=== PATIENT | female | born 1955 | race Caucasian/White ===

== ENCOUNTER 2022-01-09 10:54 | Outpatient (CLI) | payer MEDICARE, SELFPAY | END 2022-01-09 10:55 | disposition home or self-care (01) | LOC: ANHAUDASC 10:56 | PROVIDERS: Visit Provider Otolaryngology | DX: H93.13 Tinnitus, bilateral (principal); H90.3 Sensorineural hearing loss, bilateral | CPT/HCPCS: 92557; 92567 ==

== ENCOUNTER 2022-01-15 12:34 | Outpatient (RCR) | payer SELFPAY | END 2022-04-15 23:59 | disposition home or self-care (01) | LOC: ANHAUDASC 12:34 | PROVIDERS: Visit Provider Otolaryngology | DX: Z46.1 Encounter for fitting and adjustment of hearing aid (principal) | CPT/HCPCS: 92593 ==

== ENCOUNTER 2024-09-27 10:10 | Outpatient (CLI) | payer MEDICARE, SELFPAY ==
--- NOTE | ~2024-09-27 | XR_ITS ---
Right Hand Technique: PA, oblique, and lateral views were obtained. Clinical History: Carpal tunnel syndrome Findings: No acute fracture or dislocation is seen. Osseous alignment is anatomic. There is severe de generative change of the first CMC joint. Soft tissues are unremarkable. Impression: Severe degenerative change of the first CMC joint. Reviewed, dictated and finalized at location . RINARY MEDICINE DOCTOR Impression: Severe degenerative change of the first CMC joint.
--- NOTE | ~2024-09-27 | XR_ITS ---
Left Hand Technique: PA, oblique, and lateral views were obtained. Clinical History: Carpal tunnel syndrome Findings: No acute fracture or dislocation is seen. Osseous alignment is anatomic. There is mild dege nerative change of the first CMC joint. There are mild scattered degenerative changes of the interpha langeal joints of the fingers. Soft tissues are unremarkable. Impression: Mild degenerative changes, as above. Reviewed, dictated and finalized at location M. BRAIDER Impression: Mild degenerative changes, as above.
--- OUTSIDE RECORDS SUMMARY | 2024-09-27 10:22 | XMS_ITS | Patient Health Summary ---
Author Organization [facility] Address [address] [place] [address] Care Team Providers Care Acetylene Torch Burner Name Role Phone Geovani Adames MD Primary Care Provider [phone] Note from [facility],non-owned Affiliates and Associated Physician Practices is amultiple site organization consisting of ambulatory clinics and hospital sitesin [place], [place], [place] and [place]. This disclosure is being madepursuant to the Care Everywhere program and may not contain all information available regarding this patient. Last updated 18.[facility] Allergies No known active allergies Medications * Be aware that medications may not be up to date on this document. Alwaysverify current medications with the patient. * atorvastatin (LIPITOR) 10 MG tablet(Started 10/02/2020) * metFORMIN (GLUCOPHAGE) 1000 MG tablet(Started 12/03/2020) 2 times daily * glimepiride (AMARYL) 4 MG tablet(Started 10/30/2020) 2 times daily * ondansetron (ZOFRAN) 4 MG tablet(Started 12/05/2020) * olmesartan (BENICAR) 40 MG tablet(Started 12/05/2020) * LORazepam (ATIVAN) 0.5 MG tablet(Started 10/02/2020) * tiZANidine (ZANAFLEX) 4 MG tablet(Started 10/30/2020) * diphenhydrAMINE (Benadryl) 25 MG capsule Take 1 (one) capsule by mouth every 4 hours as needed for Itching * Trulicity 1.5 MG/0.5ML injection(Started 11/10/2022) * amphetamine-dextroamphetamine (Adderall) 5 MG tablet(Started 11/13/2022) * prucalopride (Motegrity) 2 MG tablet(Started 11/01/2023) Take 1 (one) tablet by mouth once daily Needs a f/u appt scheduled for further refills [phone] 1 1 refill by 10/31/2024 Active Problems Problem Noted Date Diagnosed Date Gastroparesis 12/05/2022 Nausea & vomiting 10/12/2022 Other constipation 10/12/2022 Social History Tobacco Use Types Packs/Day Years Used Date Smoking Tobacco: Former Cigarettes 1 6 1 [id number] Smokeless Tobacco: Former Tobacco Cessation:Counseling Given: Not Answered Alcohol Use Standard Drinks/Week Comments Not Currently 0 (1 standard drink = 0.6 oz pur e alcohol) Sex and Gender Information Value Date Recorded Sex Assigned at Not on file Gender Identity Not on file Sexual Orientation Not on file Last Filed Vital Signs Vital Sign Reading Time Taken Comments Blood Pressure 136/84 11/30/2022 1:50 PM CDT Pulse 93 11/30/2022 1:50 PM CDT Temperature 36.6 C (97.9 F) 11/30/2022 1:50 PM CDT Respiratory Rate 19 11/25/2022 3:15 PM CDT Oxygen Saturation 98% 11/30/2022 1:50 PM CDT Inhaled Oxygen Concentration - - Weight 70.5 kg (155 lb 6.4 oz) 11/30/2022 1:50 P M CDT Height 157.5 cm (5' 2 ) 11/30/2022 1:50 PM CDT Body Mass Index 28.42 11/30/2022 1:50 PM CDT Procedures * COMPREHENSIVE METABOLIC PANEL(Performed 11/25/2022) Performed for Nausea and vomiting, unspecified vomiting type * CBC W AUTO DIFFERENTIAL(Performed 11/25/2022) Performed for Nausea and vomiting, unspecified vomiting type * PATHOLOGY TISSUE(Performed 11/25/2022) Performed for Nausea and vomiting, unspecified vomiting type * [place] ED EGD FLEX TRANSORAL DX(Performed 11/25/2022) Performed for Nausea and vomiting, unspecified vomiting type * EGD(Performed 11/25/2022) * GLUCOSE - POINT OF CARE(Performed 11/25/2022) * NM GASTRIC EMPTYING(Performed 12/25/2020) Performed for Nausea Results * CBC WITH DIFFERENTIAL (11/25/2022 3:20 PM [facility]) WBC 8.7 3.5 - 10.5 10 3/uL 11/25/2022 3:53 PM [facility] RBC 4.44 3.80 - 5.20 10 6/uL 11/25/2022 3:53 PM [facility] Hemoglobin 13.0 12.0 - 15.6 g/dL 11/25/2022 3:53 PM [facility] Hematocrit 39.0 35.0 - 45.0 % 11/25/2022 3:53 PM [facility] MCV 87.8 80.7 - 98.3 fL 11/25/2022 3:53 PM [facility] MCH 29.3 26.7 - 34.0 pg 11/25/2022 3:53 PM [facility] MCHC 33.3 30.8 - 35.9 g/dL 11/25/2022 3:53 PM [facility] RDW-SD 42.5 36.0 - 50.0 fL 11/25/2022 3:53 PM [facility] RDW-CV 13.2 11.2 - 14.8 % 11/25/2022 3:53 PM [facility] Platelet Count 387 150 - 400 10 3/uL 11/25/2022 3:53 PM [facility] MPV 9.7 9.4 - 12.9 fL 11/25/2022 3:53 PM [facility] nRBC Absolute 0.00 0 10 3/uL 11/25/2022 3:53 PM [facility] nRBC Auto 0.0 0 /100 WBC 11/25/2022 3:53 PM [facility] Neutrophils % 60.3 35.0 - 70.0 % 11/25/2022 3:53 PM [facility] Lymphocytes % 30.8 20.0 - 43.0 % 11/25/2022 3:53 PM [facility] Monocytes % 6.1 5.0 - 13.0 % 11/25/2022 3:53 PM [facility] Eosinophils % 1.7 0.0 - 6.0 % 11/25/2022 3:53 PM CDT [facility] Basophil % 0.6 0.0 - 2.0 % 11/25/2022 3:53 PM CDT [facility] Neutrophils Absolute 5.26 1.60 - 7.00 10 3/uL 11/25/2022 3:53 PM CDT [facility] Lymphocyte Absolute 2.69 1.10 - 3.90 10 3/uL 11/25/2022 3:53 PM CDT [facility] Monocytes Absolute 0.53 0.26 - 1.07 10 3/uL 11/25/2022 3:53 PM CDT [facility] Eosinophils Absolute 0.15 0.00 - 0.47 10 3/uL 11/25/2022 3:53 PM CDT [facility] Basophils Absolute 0.05 0.00 - 0.08 10 3/uL 11/25/2022 3:53 PM CDT [facility] Immature Granulocytes % 0.5 0.0 - 1.0 % 11/25/2022 3:53 PM CDT [facility] Immature Granulocytes Absolute 0.04 11/25/2022 3:53 PM CDT [facility] Blood BLOOD SPECIMEN / Unknown Venipuncture / Unknown 11/25/2022 3:20 PM CDT 11/25/2022 3:30 PM CDT Diya Rausch COMMISSARY HELPER-INTERMEDIATE TEACHER LAB - HEMATO LOGY ORDERABLES Performing Organization Address City/State/[facility] Co de Phone Number [facility] [address] [place] [id number], [facility] [phone] * (ABNORMAL) COMPREHENSIVE METABOLIC PANEL (11/25/2022 3:20 PM CDT) BUN 21 7 - 26 mg/dL 11/25/2022 4:18 PM CDT [facility] Creatinine 0.57 0.56 - 0.96 mg/dL 11/25/2022 4:18 PM CDT [facility] Sodium 138 136 - 145 mmol/L 11/25/2022 4:18 PM CDT [facility] Potassium 3.9 3.5 - 4.5 mmol/L 11/25/2022 4:18 PM [facility] Chloride 103 98 - 107 mmol/L 11/25/2022 4:18 PM [facility] CO2 28 22 - 29 mmol/L 11/25/2022 4:18 PM [facility] Glucose 102 70 - 115 mg/dL 11/25/2022 4:18 PM [facility] Calcium 9.5 8.4 - 10.2 mg/dL 11/25/2022 4:18 PM [facility] Protein Total 6.5 6.0 - 8.3 g/dL 11/25/2022 4:18 PM [facility] Albumin 3.6 3.4 - 5.0 g/dL 11/25/2022 4:18 PM [facility] Bilirubin Total 0.3 0.2 - 1.2 mg/dL 11/25/2022 4:18 PM [facility] Alkaline Phosphatase 89 40 - 150 U/L 11/25/2022 4:18 PM [facility] ALT 14 5 - 55 U/L 11/25/2022 4:18 PM [facility] AST 11 5 - 34 U/L 11/25/2022 4:18 PM [facility] Anion Gap 11 8 - 18 11/25/2022 4:18 PM [facility] BUN/Creatinine Ratio 37(H) 7 - 23 11/25/2022 4:18 PM [facility] Osmolality Calculated 289 270 - 300 mOsm/kg 11/25/2022 4:18 PM [facility] Albumin/Globulin Ratio 1.2 1.1 - 2.3 11/25/2022 4:18 PM [facility] eGFR by CKD-EPI >90 >=90 mL/min/1.7 3 m2 11/25/2022 4:18 PM [facility] Blood BLOOD SPECIMEN / Unknown Venipuncture / Unknown 11/25/2022 3:20 PM CDT 11/25/2022 3:30 PM T Diya Rausch COMMISSARY HELPER-INTERMEDIATE TEACHER LAB - CHEMIS TRY ORDERABLES [facility] [address] [place] [address], [facility] [phone] * PATHOLOGY TISSUE (11/25/2022 2:48 PM CDT) Case Report Surgical Pathology Report Case: [id number] Authorizing Provider: Kimberly De Leon MD Collected: 11/25/2022 02:48 PM Ordering Location: [facility] Received: 11/25/2022 03:01 PM Pathologist: Silvia Drake MD Specimen: Esophagus, Distal Esophageal Polyp Bx 11/26/2022 12:31 PM CDT [facility] Final Diagnosis Esophagus, distal polyp, biopsy (A): - Benign squamous papilloma 11/26/2022 12:31 PM CDT [facility] Microscopic Description and Comment Microscopic examination substantiates the final diagnosis. 11/26/2022 12:31 PM CDT [facility] Clinical History The patient is a 67-year-old woman with nausea and vomiting. Operative procedure/findings: EGD - one 2 mm polyp at esophagus, resected and retrieved. 11/26/2022 12:31 PM CDT [facility] Gross Description The requisition and specimen(s) are identified with the patient's name Nabila Gonsalez. Received in formalin, specimen A , are 3 pink-white tissues, 0.1-0.5 cm in greatest dimension and 0.8 x 0.2 x 0.1 cm in aggregate, submitted in toto in cassette A1. DF 11/26/2022 12:31 PM CDT [facility] Disclaimer The performance characteristics of all immunohistochemical and indirect immunofluorescence stains (if any) cited in this report were determined by the Histopathology Laboratory of [facility]. Some of these tests were developed by our own laboratory and have not been cleared or approved by the US Food and Drug Administration. The FDA does not require this test to go through premarket FDA review. These tests are used for clinical purposes. They should not be regarded as investigational or for research. This laboratory is certified under the Clinical Laboratory Improvement Amendments (CLIA) as qualified to perform high complexity clinical laboratory testing. This case has been personally reviewed and interpreted by the attending (teaching) pathologist. 11/26/2022 12:31 PM CDT [facility] Embedded Images 11/26/2022 12:31 PM CDT [facility] LAB Biopsy, NOS REGION OF ESOPHAGUS / Unknown 11/25/2022 2:48 PM CDT 11/25/2022 3:01 PM CDT Kimberly De Leon MD LAB - PATHOLOGY/CYTO LOGY ORDERABLES Performing Organization Address City/State/[facility] de Phone Number [facility] LAB [address] [phone] * EGD (11/25/2022 2:26 PM CDT) Report Endoscopy POC Endoscopy Department Report __ _ Patient Name: Nabila Gonsalez Procedure Date: 11/25/2022 2:26 PM Date of : 1955 Classification: Outpatient Gender: Female Ethnicity: Not or Race: White __ _ Providers: Kimberly De Leon MD Referring MD: Diya Rausch, COMMISSARY HELPER-INTERMEDIATE TEACHER Procedure: Upper GI endoscopy Indications: Nausea with vomiting, pH Mancera deployment Medications: Monitored Anesthesia Care Patient Profile: This is a 67 year old female. Description of Procedure: After obtaining informed consent, the endoscope was passed under direct vision. Throughout the procedure, the patient's blood pressure, pulse, and oxygen saturations were monitored continuously. The Endoscope was introduced through the mouth, and advanced to the second part of duodenum. The upper GI endoscopy was accomplished without difficulty. The patient tolerated the procedure well. Findings: Esophagogastric landmarks were identified: the gastroesophageal junction was found at 32 cm and the site of hiatal narrowing was found at 36 cm from the incisors. A single 2 mm polyp was found 30 cm from the incisors. The polyp was removed with a cold biopsy forceps. Resection and retrieval were complete. A medium-sized hiatal hernia was present. A large amount of food (residue) was found in the gastric body. The first portion of the duodenum and second portion of the duodenum were normal. Estimated Blood Loss: Estimated blood loss was minimal. Complications: No immediate complications. Impression: - Esophagogastric landmarks identified. - A single diminitive esophageal polyp was found. Resected and retrieved. No reflux esophagitis. - Medium-sized hiatal hernia. - A large amount of food (residue) in the stomach. This explains the nausea and vomiting. Work up for delayed gastric emptying should be performed. Based on that, pH MANCERA is of low yield for the time being so it was not performed. - Normal first portion of the duodenum and second portion of the duodenum. Recommendation: - Patient has a contact number available for emergencies. The signs and symptoms of potential delayed complications were discussed with the patient. Return to normal activities tomorrow. Written discharge instructions were provided to the patient. - Resume previous diet. - Await pathology results. - Follow up in GI clinic. Attending Participation: I personally performed the entire procedure. Procedure Code(s): --- Professional --- 24026, Esophagogastroduode noscopy, flexible, transoral; with biopsy, single or multiple Diagnosis Code(s): --- Professional --- K22.8, Other specified diseases of esophagus K44.9, Diaphragmatic hernia without obstruction or gangrene R11.2, Nausea with vomiting, unspecified CPT copyright 2019 [employer]. All rights reserved. The codes documented in this report are preliminary and upon transit specialist review may be revised to meet current compliance requirements. Kimberly De Leon MD, 11/25/2022 2:58:25 PM This report has been signed electronically. Note Initiated On: 11/25/2022 2:26 PM Number of Addenda: [address] [place] [address] [facility] 11/25/2022 2:26 PM CDT Kimberly De Leon MD GI PROCEDURE ORDERAB LES Performing Organization Address [facility] Co de Phone Number [facility] * (ABNORMAL) GLUCOSE - POINT OF CARE (11/25/2022 2:02 PM CDT) Glucose WB/POC 127(H) 70 - 115 mg/dL 11/25/2022 3:53 PM CDT [facility] Specimen Type Venous 11/25/2022 3:53 PM CDT [facility] Blood BLOOD SPECIMEN / Unknown 11/25/2022 2:02 PM CDT 11/25/2022 3:53 PM CDT Kimberly De Leon MD LAB - POINT OF CARE ORDERABLES Performing Organization Address [facility] Co de Phone Number [facility] [address] [place] [address], [facility] [phone] * NM GASTRIC EMPTYING (12/25/2020 1:00 PM CDT) Anatomical Region Laterality Modality Abdomen Nuclear Medicine 12/25/2020 1:52 PM CDT Impressions 12/25/2020 1:59 PM CDT Impression: Moderate gastroparesis (grade 2) based on 32% retention at 4 hours after ingestion of meal. This report was electronically signed by JACQUES MARTINEZ D.O. on 12/25/2020 1:59 PM . Narrative 12/25/2020 1:59 PM CDT Solid Gastric Emptying Study Agent: 0.5mCi of Tc- 99m- sulfur colloid mixed in scrambled egg. History: 65-year-old female with abdominal pain. Patient's BMI is N/A. Technique: The examination was performed after the ingestion of a standardized meal (scrambled egg substitute (120 g Egg Beater, 60 kcal, equivalent to the volume of 2 large eggs), two slices of bread (120 kcal), strawberry jam (30 g, 75 kcal), and water (120 ml).The meal has a caloric value of 255 kcal: 72% carbohydrate,24% protein, 2% fat and 2% fiber. The meal is labeled with 0.5 mCi of [id number] sulfur colloid. Findings: After ingestion of solid meal, sequential images were obtained up to 4 hours. Immediate,1 hour, 2 hour and 4 hours after ingestion. The percent retention in the stomach is as follows: 1 hour: 99% (Normal range: 37 - 90% ) 2 hour: 52% (Normal range: 30 - 60%) 4 hour: 32% (Normal range: 0 - 10%) T1/2: 186 minutes (Upper limits 130) Severity of gastroparesis is as follows: Grade 1 (mild): 11-20% Grade 2 (moderate): 21 - 35% Grade 3 (severe): 36-50% Grade 4 (very severe): > 50% Procedure Note Jacques Martinez DO - 12/25/2020 Solid Gastric Emptying Study Agent: 0.5mCi of Tc- 99m- sulfur colloid mixed in scrambled egg. History: 65-year-old female with abdominal pain. Patient's BMI is N/A. Technique: The examination was performed after the ingestion of a standardized meal (scrambled egg substitute (120 g Egg Beater, 60 kcal, equivalent to the volume of 2 large eggs), two slices of bread (120kcal), strawberry jam (30 g, 75 kcal), and water (120 ml).The meal has acaloric value of 255 kcal: 72% carbohydrate,24% protein, 2% fat and 2% fiber.The meal is labeled with 0.5 mCi of [id number] sulfur colloid. Findings: After ingestion of solid meal, sequential images were obtained up to 4 hours. Immediate,1 hour, 2 hour and 4 hours after ingestion. The percent retention in the stomach is as follows: 1 hour: 99% (Normal range: 37 - 90% ) 2 hour: 52% (Normal range: 30 - 60%) 4 hour: 32% (Normal range: 0 - 10%) T1/2: 186 minutes (Upper limits 130) Severity of gastroparesis is as follows: Grade 1 (mild): 11-20% Grade 2 (moderate): 21 - 35% Grade 3 (severe): 36-50% Grade 4 (very severe): > 50% Impression: Moderate gastroparesis (grade 2) based on 32% retention at 4 hours after ingestion of meal. This report was electronically signed by JACQUES MARTINEZ D.O. on12/25/2020 1:59 PM . Geovani Adames MD [place] ORDERABLES Care Teams Acetylene Torch Burner Relationship Specialty Start Date End Date Geovani Adames MD [address] [place] [address] PCP - General 12/10/20
--- OUTSIDE RECORDS SUMMARY | 2024-09-27 10:22 | XMS_ITS | Clinical Summary ---
Author Organization [facility] Address [address] [place] [address] Care Team Providers Care Phototypesetter Operator Name Role Phone Unavailable Primary Care Provider Unavailabl e Encounters Date Type Department Care Team Description 09/04/2024 1:48 PM SECURITY MESSENGER - 09/04/2024 11:59 PM SECURITY MESSENGER Hospital Encounter [facility] [place] [address] Geovani Adames MD Patchala, Sri K, MD Discharge Disposition: Home or Self Care (Routine Discharge) 09/04/2024 Travel 08/28/2024 Orders Only [facility] [address] Jose Lama MD from Last 3 Months Social History Tobacco Use Types Packs/Day Years Used Date Smoking Tobacco: Never Assessed Comments Unknown Sex and Gender Information Value Date Recorded Sex Assigned at Female 08/28/2024 11:00 AM SECURITY MESSENGER Legal Sex Female 6:56 PM CDT Gender Identity Not on file Sexual Orientation Not on file Plan of Treatment Health Maintenance Due Date Last Done Comments Colorectal Cancer Screening Colonoscopy (10 Years) 1955 Hepatitis C 1975 Mammogram Screening 1997 Zoster Vaccines (1 of 2) 2007 Annual Medicare Wellness Visit 2022 Dexa Scan (General) 2022 Pneumococcal Vaccine: 65+ Years (1 of 1 - PCV) 2022 DTaP, Tdap and Td Vaccines ( 2 - Td or Tdap) 08/09/2022 08/09/2012 COVID-19 Vaccine (2023-2 5 season) 2024 11/23/2020, 11/03/2020 Influenza Adult (#1) 2024 RSV Immunization or 60+ Years (1 - 1-dose 75+ series) 02/27/2032 Meningococcal B Vaccine Aged Out No l onger eligible based on patient's age to complete this topic Meningococcal Vaccine Aged Out No darrel davie eligible based on patient's age to complete this topic RSV Immunizations Under 20 Months Aged Out No longer eligible b ased on patient's age to complete this topic Procedures Procedure Name Priority Date/Time Associated Diagnosis Comments EMG Routine 09/04/2024 1:48 PM SECURITY MESSENGER Paresthesia of skin from Last 3 Months Results * EMG (09/04/2024 1:48 PM SECURITY MESSENGER) 09/04/2024 1:48 PM SECURITY MESSENGER Narrative ESCRIPTION - 09/04/2024 2:48 PM SECURITY MESSENGER Patient Name: JOSE BLANCAS Date of : 1955 Account: [id number] Facility: [facility] Location: [facility] Date of Service: 09/04/2024 EMG COMPLAINT: Bilateral hand/forearm pain, left worse than right. Patient had EMG and nerve conduction performed of bilateral upper extremities. Results are as follows. SENSORY NERVE CONDUCTION STUDIES: Left median to digit 2: Latency of 3.55 with amplitude 30.0. Left median to digit 3: Latency of 3.75, which is slightly prolonged, with amplitude 44.8. Right median digit 2: Latency of 3.0 with amplitude 33.8. Left ulnar to digit 5: Latency of 2.8 with amplitude 20.6. Right ulnar to digit 5: Latency of 2.7 with amplitude 21.8. Left radial to thumb: Latency of 2.35 with amplitude of 17.0. Right radial to thumb: Latency of 2.15 with amplitude of 16.0. MOTOR NERVE CONDUCTION STUDIES: Left median to APB: Latency of 4.95, which is prolonged, with amplitude 3.9, conduction velocity 46.9. Right median to APB: Latency of 3.55 with amplitude 2.8, conduction velocity 50, low amplitude for bilateral median nerves. Left ulnar to ADM: Latency of 2.95 with amplitude 11.3, conduction velocity 47.3. Below the elbow amplitude 10.8, above the elbow amplitude 11.1, conduction velocity across the elbow 50. Right ulnar to ADM: Latency 2.9 with amplitude 9.9, conduction velocity 61.7. Below the elbow amplitude 11.1, above the elbow amplitude 10.1, conduction velocity across the elbow 61.1. EMG was performed of bilateral upper extremities. Left biceps, left triceps, left first dorsal interossei, left extensor indicis, left APB, left brachioradialis. Right biceps, right triceps, right brachioradialis, right first dorsal interossei, right APB. Normal insertional activity. No fibs, positive sharp waves or fasciculations seen. Motor units with normal amplitude and duration. Recruitment pattern is normal, except in the left APB, there is reduced recruitment pattern noted. CONCLUSION: Electrodiagnostic evidence for moderate intensity carpal tunnel syndrome seen on bilateral upper extremities, left is slightly worse than right. Some of her symptoms in the arm/forearm area might be musculoskeletal origin (clinical correlation is required). Signature/Date: JOSE LAMA #[id number] /MOS Geovani Adames MD NEUROLOGY ORDERABLES Brandy hebert Result Performing Organization Address City/State/[facility] Co de Phone Number [facility] from Last 3 Months Insurance MEDICAID MEDICARE
--- OUTSIDE RECORDS SUMMARY | 2024-09-27 10:22 | XMS_ITS | Clinical Summary ---
Author Organization [facility] Address [address] [place] [address] Care Team Providers Care Mold Polisher Name Role Phone Geovani Adames MD Primary Care Provider [phone] [phone] Source Comments [facility],non-owned Affiliates and Associated Physician Practices is [facility] organization consisting of ambulatory clinics and hospital sitesin [place], [place], [place] and [place]. This disclosure is being madepursuant to the Care Everywhere program and may not contain all information available regarding this patient. Last updated 18.[facility] Allergies No known active allergies Medications * Be aware that medications may not be up to date on this document. Alwaysverify current medications with the patient. Medication Sig Dispensed Refills Start Date End Date Status atorvastatin (LIPITOR) 10 MG tablet 10/02/2020 Active metFORMIN (GLUCOPHAGE) 1000 MG tablet 2 times daily 12/03/2020 Active glimepiride (AMARYL) 4 MG tablet 2 times daily 10/30/2020 Active ondansetron (ZOFRAN) 4 MG tablet 12/05/2020 Active olmesartan (BENICAR) 40 MG tablet 12/05/2020 Active LORazepam (ATIVAN) 0.5 MG tablet 10/02/2020 Active tiZANidine (ZANAFLEX) 4 MG tablet 10/30/2020 Active diphenhydrAMINE (Benadryl) 25 MG capsule Take 1 (one) capsule by mouth every 4 hours as needed for Itching Active Trulicity 1.5 MG/0.5ML injection 11/10/2022 Active amphetamine-dextroam phetamine (Adderall) 5 MG tablet 11/13/2022 Active prucalopride (Motegrity) 2 MG tablet Take 1 (one) tablet by mouth once daily Needs a f/u appt scheduled for further refills [phone] option 1 30 tablet 1 11/01/2023 Active Active Problems Problem Noted Date Diagnosed Date Gastroparesis 12/05/2022 Nausea & vomiting 10/12/2022 Other constipation 10/12/2022 Family History Medical History Relation Name Comments CAD (Coronary Artery Disease) Father Cancer - Lung Father Cancer - Breast Mother Hypertension Mother Relation Name Status Comments Father Mother Alive Social History Tobacco Use Types Packs/Day Years Used Date Smoking Tobacco: Former Cigarettes 1 6 1 1976 Smokeless Tobacco: Former Tobacco Cessation:Counseling Given: Not [...] Mass Index 28.42 11/30/2022 1:50 PM CDT Plan of Treatment Health Maintenance Due Date Last Done Comments BONE DENSITY TESTING 1957 COLOGUARD (AGES 45-75) - COL ON CA SCREENING 1957 COLON MONITORING 1957 COLONOSCOPY - COLON CA SCREENING 1957 CT COLONOGRAPHY - COLON CA SCREENING 1957 Colorectal Cancer Screening 1957 FIT - COLON CA SCREENING 1957 FLEX SIG - COLON CA SCREENING 1957 MAMMOGRAM 1957 HEPATITIS C SCREENING 02/22/1975 DTAP/TDAP/TD VACCINES (1 - Tdap) 02/27/1976 PNEUMOCOCCAL VACCINE 50+ (1 of 1 - PCV) 2007 ZOSTER VACCINE (1 of 2) 2007 COVID-19 VACCINE (1 - 2023-2 5 season) 2024 INFLUENZA VACCINE (#1) 2024 DEPRESSION SCREENING 08/09/2024 MEDICARE AWV CALENDAR YEAR 2024 SCREENING FOR DIABETES 11/25/2025 3, 11/25/2022 Respiratory Syncytial Virus (RSV) Vaccine Pt: or over 60 yrs (1 - 1-dose 75+ series) 02/27/2032 HEPATITIS B VACCINE Aged Out No longe r eligible based on patient's age to complete this topic HIB VACCINE Aged Out No longer eligi ble based on patient's age to complete this topic HPV VACCINE Aged Out No longer eligi ble based on patient's age to complete this topic MENINGOCOCCAL (Group B) VACCINE Aged Out No longer eligible b ased on patient's age to complete this topic MENINGOCOCCAL VACCINE Aged Out No darrel davie eligible based on patient's age to complete this topic Goals Goal Patient Goal Type Associated Problems Recent Progress Patient-Stated? Author Medication Management General On track( 023 11:14 AM ACCOUNTS MANAGER) Stephie Jimenez, RN Note: Expected end date: ongoing Interventions: Take all medications as prescribed Let your doctor know right away about any changes in your medications Make sure to request a refill of your medication at least one week prior to your last dose Procedures Procedure Name Priority Date/Time Associated Diagnosis Comments GLUCOSE - POINT OF CARE Routine 11/25/2022 2:02 PM CDT from Last 3 Months or Most Recently Relevant to Health Maintenance Results * (ABNORMAL) GLUCOSE - POINT OF CARE (11/25/2022 2:02 PM CDT) Glucose WB/POC 127(H) 70 - 115 mg/dL 11/25/2022 3:53 PM CDT [facility] Specimen Type Venous 11/25/2022 3:53 PM CDT [facility] Blood BLOOD SPECIMEN / Unknown 11/25/2022 2:02 PM CDT 11/25/2022 3:53 PM CDT Kimberly De Leon MD LAB - POINT OF CARE ORDERABLES [facility] [address] [place] [address], [facility] [phone] from Last 3 Months or Most Recently Relevant to Health Maintenance Care Teams Mold Polisher Relationship Specialty Start Date End Date Geovani Adames MD [address] [place] [address] PCP - General 12/10/20
--- OUTSIDE RECORDS SUMMARY | 2024-09-27 10:22 | XMS_ITS | Referral Summary ---
Author Organization [facility] Address [address] [place] [address] Care Team Providers Care Ccnp Name Role Phone Geovani Adames MD Primary Care Provider [phone] [phone] Source Comments [facility],non-owned Affiliates and Associated Physician Practices is [facility] organization consisting of ambulatory clinics and hospital sitesin [place], [place], [place] and [place]. This disclosure is being madepursuant to the Care Everywhere program and may not contain all information available regarding this patient. Last updated 18.[facility] Allergies No known active allergies Medications * [...] a f/u appt scheduled for further refills [phone] option 1 30 tablet 1 11/01/2023 Active Active Problems Problem Noted Date Diagnosed Date Gastroparesis 12/05/2022 Nausea & vomiting 10/12/2022 Other constipation 10/12/2022 Social History Tobacco Use Types Packs/Day Years Used Date Smoking Tobacco: Former Cigarettes 1 6 1 - 1976 Smokeless Tobacco: Former Tobacco Cessation:Counseling Given: [...] Mass Index 28.42 11/30/2022 1:50 PM CDT Functional Status Functional Status Response Date of Assess ment Is person deaf or have serious hearing difficult y? No 11/25/2022 Is person blind or have serious difficulty seein g? No 11/25/2022 Does person have serious dif ficulty walking/climbing stairs? No 11/25/2022 Does person have difficulty dressing/bathing? No 11/25/2022 Does person have difficulty doing errands alone? No 11/25/2022 Cognitive Status Response Date of Assessm ent Does person have difficulty concentrating/remembering/making decisions? No 11/25/2022 Plan of Treatment Not on file Goals Goal Patient Goal Type Associated Problems Recent Progress Patient-Stated? Author Medication Management General On track( 023 11:14 AM BAG GRADER) No Stephie Morris, RN Note: Expected end date: ongoing Interventions: [...] POINT OF CARE (11/25/2022 2:02 PM CDT) [facility] Glucose WB/POC 127(H) 70 - 115 mg/dL 11/25/2022 3:53 PM CDT [facility] Specimen Type Venous 11/25/2022 3:53 PM CDT [facility] Blood BLOOD SPECIMEN / Unknown 11/25/2022 2:02 PM CDT 11/25/2022 3:53 PM CDT Kimberly De Leon MD LAB - POINT OF CARE ORDERABLES [facility] [address] [place] [address], [facility] [phone] from Last 3 Months or Most Recently Relevant to Health Maintenance Care Teams Ccnp Relationship Specialty Start Date End Date Geovani Adames MD [address] [place] [address] PCP - General 12/10/20
== END 2024-09-27 10:11 | disposition home or self-care (01) ==
PROVIDERS: Visit Provider Orthopaedic Surgery
DX: M18.11 Unilateral primary osteoarthritis of first carpometacarpal joint, right hand (principal); M18.12 Unilateral primary osteoarthritis of first carpometacarpal joint, left hand; M19.042 Primary osteoarthritis, left hand
CPT/HCPCS: 73130

== ENCOUNTER 2024-10-05 07:39 | Outpatient (CLI) | payer MEDICARE, SELFPAY | END 2024-10-06 06:30 | disposition home or self-care (01) | DX: G47.33 Obstructive sleep apnea (adult) (pediatric) (principal); G47.19 Other hypersomnia | CPT/HCPCS: 95810 ==

== ENCOUNTER 2025-02-07 11:11 | Emergency (ER) | payer MEDICARE, SELFPAY ==
--- NOTE | ~2025-02-07 | XR_ITS ---
HISTORY: 5th digit pain/trauma COMPARISON: None TECHNIQUE: 3 views of the right foot were performed FINDINGS: No acute fracture or dislocation is appreciated. No significant degenerative disease is noted. The base of the fifth metatarsal is intact. Small calcaneal spur is noted. Incidental notation is made of os trigonum for which clinical correlation is needed to determine the presence of symptoms of ankle impingement syndrome. No significant soft tissue swelling is present. IMPRESSION: Os trigonum. No acute fracture or dislocation. Reviewed, dictated and finalized at location A.
--- NOTE | ~2025-02-07 | XR_ITS ---
EXAMINATION: XR foot LT min 3V DATE: 02/07/2025 11:44 INDICATION: Left mid foot swelling post trauma TECHNIQUE: Dorsoplantar, two oblique and lateral views of the left foot were obtained. COMPARISON: None. FINDINGS: Alignment is normal. No fracture. 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 No periosteal reaction or cortical erosions. Soft tissues are unremarkable. IMPRESSION: 1. 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 No acute osseous abnormality . Reviewed, dictated and finalized at location A. IMPRESSION: 1. 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 No acu te osseous abnormality.
[2025-02-07 11:15] VITALS: BP 110/73; PULSE 89; RESP 16; TEMP 36.6; O2SAT 100
--- OUTSIDE RECORDS SUMMARY | 2025-02-07 11:21 | XMS_ITS | Referral Summary ---
Author Organization [facility] Address [facility] [place] [address] Care Team Providers Care Small Business Director Name Role Phone Geovani Adames MD Primary Care Provider + Allergies No known active allergies Medications dextroamphetamine- amphetamine XR (ADDERALL XR) 10 mg 24 hr capsule 0 10/04/2024 Ac tive Active Problems No known active problems Social History Tobacco Use Types Packs/Day Years Used Date Smoking Tobacco: Former Cigarettes Tobacco Cessation:Counseling Given: Not Answered Comments Unknown Sex and Gender Information Value Date Recorded Sex Assigned at Not on file 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
--- OUTSIDE RECORDS SUMMARY | 2025-02-07 11:21 | XMS_ITS | Clinical Summary ---
Author Organization [facility] Address [address] [place] [address] Care Team Providers Care Television Journalist Name Role Phone Geovani Adames MD Primary Care Provider [phone] [phone] Source Comments [facility],non-owned Affiliates and Associated Physician Practices is amultiple site organization consisting of ambulatory clinics and hospital sitesin [place], [place], [place] and [place]. This disclosure is being madepursuant to the Care Everywhere program and may not contain all information available regarding this patient. Last updated 18.[facility] Allergies No known active allergies Medications * Be aware that medications may not be up to date on this document. Alwaysverify current medications with the patient. atorvastatin (LIPITOR) 10 MG tablet 1 Active metFORMIN (GLUCOPHAGE) 1000 MG tablet 2 times daily 1 Active glimepiride (AMARYL) 4 MG tablet 2 times daily 1 Active ondansetron (ZOFRAN) 4 MG tablet 1 Active olmesartan (BENICAR) 40 MG tablet 1 Active LORazepam (ATIVAN) 0.5 MG tablet 1 Active tiZANidine (ZANAFLEX) 4 MG tablet 1 Active diphenhydrAMINE (Benadryl) 25 MG capsule Take 1 (one) capsule by mouth every 4 hours as needed for Itching Active Trulicity 1.5 MG/0.5ML injection 3 Active amphetamine-dex troamphetamine (Adderall) 5 MG tablet 3 Active prucalopride (Motegrity) 2 MG tablet Take 1 (one) tablet by mouth once daily Needs a f/u appt scheduled for further refills [phone] option 1 30 tablet 1 4 Active Active Problems Problem Noted Date Diagnosed [...] drink = 0.6 oz pur e alcohol) Comments Unknown Sex and Gender Information Value Date Recorded Sex Assigned at Not on file Legal Sex Female 9:10 AM CDT Gender Identity Not on file Sexual [...] P M CDT Height 157.5 cm (5' 2) 11/30/2022 1:50 PM CDT Body Mass Index [...] VACCINE (1 - 2023-2 5 season) 2024 DEPRESSION SCREENING 08/09/2024 MEDICARE AWV CALENDAR YEAR 2024 INFLUENZA VACCINE (Season Ended) 2025 SCREENING FOR DIABETES 11/25/2025 3, 11/25/2022 Respiratory [...] complete this topic MENINGOCOCCAL (Group B) VACCINE SHARED DECISION-MAKING Aged Out No longer eligible based on patient's age to complete this topic MENINGOCOCCAL GROUPS A/C/Y/W VACCINE Aged Out No longer eligible b ased on patient's age to complete this topic Goals Goal Patient Goal Type Associated Problems Recent Progress Patient-Stated? Author Medication Management General On track( 023 11:14 AM LOW PRESSURE KETTLE OPERATOR) Stephie Jimenez, RN Note: Expected end date: [...] - 115 mg/dL 11/25/2022 3:53 PM CDT [facility] Specimen Type Venous 11/25/2022 3:53 PM CDT [facility] Blood BLOOD SPECIMEN / Unknown 11/25/2022 2:02 PM CDT 11/25/2022 3:53 PM CDT Kimberly De Leon MD LAB - POINT OF CARE ORDERABLES F inal Result [facility] [address] [place] [address], [facility] [phone] from Last 3 Months or Most Recently Relevant to Health Maintenance Insurance [place] [address] [facility] MANAGED MEDICARE ADV [place] [id number] Care Teams Television Journalist Relationship Specialty Start Date End Date Geovani Adames MD [address] [place] [address] PCP - General 12/10/20
--- OUTSIDE RECORDS SUMMARY | 2025-02-07 11:21 | XMS_ITS | Clinical Summary ---
Author Organization [facility] Address [address] [place] [address] Care Team Providers Care Finisher Card Tender Name Role Phone Unavailable Primary Care Provider Unavailabl e Social History Tobacco Use Types Packs/Day Years Used Date Smoking Tobacco: Never Assessed Comments Unknown Sex and Gender Information Value Date Recorded Sex Assigned at Female 08/28/2024 11:00 AM AREA CLEANER Legal Sex Female 6:56 PM CDT Gender Identity Not on file Sexual Orientation Not on file Plan of Treatment Health Maintenance Due Date Last Done Comments Colorectal Cancer Screening Colonoscopy (10 Years) 1957 Hepatitis C 1975 Mammogram Screening 1997 Pneumococcal Vaccine: 50+ Years (1 of 1 - PCV) 2007 Zoster Vaccines (1 of 2) 2007 Annual Medicare Wellness Visit 2022 Dexa Scan (General) 2022 DTaP, Tdap and Td Vaccines ( 2 - Td or Tdap) 08/09/2022 08/09/2012 COVID-19 Vaccine (3 - 2023-2 5 season) 2024 11/23/2020, 11/03/2020 RSV Immunization or 60+ Years (1 - 1-dose 75+ series) 02/27/2032 Meningococcal B Vaccine Aged Out No l onger eligible based on patient's age to complete this topic Meningococcal Vaccine Aged Out No darrel davie eligible based on patient's age to complete this topic RSV Immunizations Under 20 Months Aged Out No longer eligible b ased on patient's age to complete this topic Insurance MEDICAID MEDICARE
--- OUTSIDE RECORDS SUMMARY | 2025-02-07 11:21 | XMS_ITS | Clinical Summary ---
Author Organization [facility] Address [address] [place] [address] Care Team Providers Care Metal Sprayer Machined Parts Name Role Phone Geovani Adames MD Primary [...] on file Legal Sex Female 1:12 PM INSURANCE CLAIMS ANALYST Gender Identity Not on file Sexual Orientation Not on file Obstetrics History Plan of Treatment Health Maintenance Due Date Last Done Comments Breast Cancer Screening-Mammogram 1957 Colon Cancer Screening-Colonoscopy 1957 Depression Screening 1957 Fall Risk Assessment 1957 Hepatitis C Screening 1957 Osteoporosis Screening-Bone Density Scan 1957 Hepatitis B Screening 1975 Pneumococcal vaccine 65+ (1 of 1 - PCV) 2007 Zoster Vaccine (1 of 2) 2007 Well Visit 65+ 2022 DTaP/Tdap/Td Vaccine (2 - Td or Tdap) 08/09/202208/2012 Covid-19 Vaccine ( season) 2024, 11/03/2020 Influenza Vaccine (Season Ended) 2025 Insurance [facility] MEDICARE ADVANTAGE [facility] Address: [facility] [address] [place] [address] Care Teams Metal Sprayer Machined Parts Relationship Specialty Start Date End Date Geovani Adames MD [address] [place] [phone] PCP - General Internal Medicine 09/19/24
[2025-02-07 11:27] VITALS: BP 110/73; PULSE 86; RESP 18; TEMP 36.7; O2SAT 100
--- OUTSIDE RECORDS SUMMARY | 2025-02-07 11:54 | XMS_ITS | Referral Summary ---
Author Organization [facility] Address [facility] [place] [address] Care Team Providers Care Hockey Scout Name Role Phone Geovani Adames MD Primary [...] on file Legal Sex Female 1:12 PM WATER QUALITY CONTROL ENGINEER Gender Identity Not on file Sexual Orientation Not on file Plan of Treatment Not on file Insurance [facility] MEDICARE [facility] Address: [address] [address] Care Teams Hockey Scout Relationship Specialty Start Date End Date Geovani Adames MD [address] [place] [id number] PCP - General Internal Medicine 09/19/24
--- OUTSIDE RECORDS SUMMARY | 2025-02-07 11:54 | XMS_ITS | Clinical Summary ---
Author Organization [facility] Address [address] [place] [address] Care Team Providers Care Director Of Graduate Medical Education Name Role Phone Geovani Adames MD Primary [...] on file Legal Sex Female 1:12 PM V BELT COVERER Gender Identity Not on file Sexual Orientation [...] 11/03/2020 Influenza Vaccine (Season Ended) 2025 Insurance [facility] MEDICARE ADVANTAGE Care Teams Director Of Graduate Medical Education Relationship Specialty Start Date End Date Geovani Adames MD [address] [place] [phone] PCP - General Internal Medicine 09/19/24
--- OUTSIDE RECORDS SUMMARY | 2025-02-07 11:54 | XMS_ITS | Clinical Summary ---
Author Organization [facility] Address [address] [place] [address] Care Team Providers Care Pc Maintenance Technician Name Role Phone Unavailable Primary Care Provider Unavailabl e Social History Tobacco Use Types Packs/Day Years Used Date Smoking Tobacco: Never Assessed Comments Unknown Sex and Gender Information Value Date Recorded Sex Assigned at Female 08/28/2024 11:00 AM MASTER WELDER Legal Sex Female 6:56 PM CDT Gender [...]
--- OUTSIDE RECORDS SUMMARY | 2025-02-07 11:54 | XMS_ITS | Clinical Summary ---
Author Organization [facility] Address [address] [place] [address] Care Team Providers Care Docent Coordinator Name Role Phone Geovani Adames MD Primary Care Provider +1 [phone] Source Comments [facility],non-owned Affiliates and Associated Physician Practices is amultiple site organization consisting of ambulatory clinics and hospital sitesin [place], [place], [place] and [place]. This disclosure is being madepursuant to the Care Everywhere program and may not contain all information available regarding this patient. Last updated 18.[facility] Allergies No known active allergies Medications * [...] a f/u appt scheduled for further refills [phone] option 1 30 tablet 1 4 Active [...] Management General On track( 023 11:14 AM RUG CUTTER HELPER) Stephie Jimenez, RN Note: Expected end date: [...] - 115 mg/dL 11/25/2022 3:53 PM CDT [facility] Specimen Type Venous 11/25/2022 3:53 PM CDT [facility] Blood BLOOD SPECIMEN / Unknown 11/25/2022 2:02 PM CDT 11/25/2022 3:53 PM CDT Kimberly De Leon MD LAB - POINT OF CARE ORDERABLES F inal Result [facility] [address] [place] [address], [facility] [phone] from Last 3 Months or Most Recently Relevant to Health Maintenance Insurance MANAGED MEDICARE ADV [facility] MANAGED MEDICARE ADV [place] [id number] Care Teams Docent Coordinator Relationship Specialty Start Date End Date Geovani Adames MD [address] [place] [address] PCP - General 12/10/20
--- NOTE | 2025-02-07 11:57 | ED_ITS ---
HPI - Extremity Injury (Lower) General Chief Complaint: Extremity Injury, Lower Stated Complaint: L FOOT INJURY Time Seen by Provider: 02/07/25 11:22 History of Present Illness HPI Narrative: Patient is a 69-year-old female who presents ER with pain to her feet bilaterally. Bruising to right 5th digit and tender with movement and bearing weight. Additionally has swelling and pain to the midfoot on left side. Patient is able to walk. Her dog ran up behind her and knocked her off her feet yesterday. She did not strike her head or lose consciousness. Pain is increased. She is not requiring home controlled this time. Related Data Home Medications ?Medication ?Instructions ?Recorded ?Confirmed ?Last Taken ?Type atorvastatin 10 mg tablet (Lipitor) 10 mg PO DAILY 09/26/24 09/27/24 Unknown History dextroamphetamine-amphetamine ER 10 mg PO DAILY 09/26/24 09/27/24 Unknown History 10 mg 24hr capsule,extend release (Adderall XR) fluticasone propionate 50 1 spray intranasal DAILY 09/26/24 09/27/24 Unknown History mcg/actuation nasal spray,suspension lorazepam 1 mg tablet 1 mg PO DAILY PRN 09/26/24 09/27/24 Unknown History olmesartan 40 mg tablet 40 mg PO DAILY 09/26/24 09/27/24 Unknown History ondansetron HCl 4 mg tablet 4 mg PO Q8H 09/26/24 09/27/24 Unknown History prucalopride 2 mg tablet 2 mg PO DAILY 09/26/24 09/27/24 Unknown History quetiapine 25 mg tablet 25 mg PO QHS 09/26/24 09/27/24 Unknown History semaglutide 1 mg/dose (4 mg/3 mL) 1 mg subcut WEEKLY 09/26/24 09/27/24 Unknown History subcutaneous pen injector valacyclovir 500 mg tablet 500 mg PO DAILY 09/26/24 09/27/24 Unknown History Allergies Allergy/AdvReac Type Severity Reaction Status Date / Time No Known Allergies Allergy Mild Verified 02/07/25 11:20 Review of Systems Constitutional: Constitutional: Reports no additional constitutional complaints Musculoskeletal: Musculoskeletal: Reports no additional musculoskeletal complaints Integumentary/Breasts: Skin/Breast: Reports system reviewed and no additional complaints, except as docu REPLACED BY [facility] Past Medical History Medical History Mixed hyperlipidemia Essential (primary) hypertension Attention deficit disorder of adult with hyperactivity Generalized anxiety disorder GERD without esophagitis Diabetes Surgical History Surgical History History of colonoscopy (~11/22/23) History of esophagogastroduodenoscopy (EGD) (~06/07/18) Social History Social History Smoking status: Unknown if ever smoked Exam Narrative: GENERAL: Well-appearing, well-nourished, and in no acute distress. HEAD: Normocephalic, atraumatic. ENT: Mucous membranes moist. HEART: Regular rate and rhythm. Normal peripheral pulses. EXTREMITIES: Normal range of motion. No edema. Mild tenderness left mid foot, tender over the right 5th digit. There is an abrasion to the medial aspect of the left foot towards the heel that is not infected SKIN: Warm, dry, no rash. NEURO: Alert and oriented x3. PSYCH: Normal mood and affect. Course Course Emergency Course: Patient resting comfortably. Informed of results. Appropriate for discharge home. Vital Signs Vital signs: Vital Signs Temperature 97.9 F 02/07/25 11:15 Pulse Rate 89 02/07/25 11:15 Respiratory Rate 16 02/07/25 11:15 Blood Pressure 110/73 02/07/25 11:15 Pulse Oximetry 100 02/07/25 11:15 Oxygen Delivery Room Air 02/07/25 11:15 Temperature 98.0 F 02/07/25 11:27 Pulse Rate 86 02/07/25 11:27 Respiratory Rate 18 02/07/25 11:27 Blood Pressure 110/73 02/07/25 11:27 Pulse Oximetry 100 02/07/25 11:27 Oxygen Delivery Room Air 02/07/25 11:15 MDM - Extremity Injury (Lower) Imaging Data Radiologist's impression: ITS Impressions Foot X-Ray 02/07/25 11:50 IMPRESSION: 1. 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 No acute osseous abnormality. Foot X-Ray 02/07/25 11:50 IMPRESSION: Os trigonum. No acute fracture or dislocation. Discharge Plan Discharge Clinical Impression: Contusion of foot, Sprain of toe Patient Disposition: Home Condition: Stable Instructions: P.R.I.C.E. Treatment (ED) Additional Instructions: Return to the ER if you suffered a new injury, you have chest pain shortness of breath, or you have additional concerns. Take Tylenol or ibuprofen for pain. Patient Language: Faroese Prescriptions: No Action atorvastatin [Lipitor] 10 mg tablet 10 mg PO DAILY dextroamphetamine-amphetamine [Adderall XR] 10 mg capsule,extended release 24hr 10 mg PO DAILY fluticasone propionate 50 mcg/actuation spray,suspension 1 spray intranasal DAILY Rx Instructions: administer into each nostril lorazepam 1 mg tablet 1 mg PO DAILY PRN olmesartan 40 mg tablet 40 mg PO DAILY ondansetron HCl 4 mg tablet 4 mg PO Q8H prucalopride 2 mg tablet 2 mg PO DAILY quetiapine 25 mg tablet 25 mg PO QHS semaglutide 1 mg/dose (4 mg/3 mL) pen injector 1 mg subcut WEEKLY valacyclovir 500 mg tablet 500 mg PO DAILY Follow-up/Referrals: PHYSICIAN NOT ON STAFF,NONSTAFF [Primary Care Provider] - 1 Week
[2025-02-07 12:21] VITALS: PULSE 76; RESP 19; O2SAT 99
== END 2025-02-07 12:23 | disposition home or self-care (01) ==
PROVIDERS: Emergency Provider Emergency Medicine
DX: S93.504A Unspecified sprain of right lesser toe(s), initial encounter (principal); S90.32XA Contusion of left foot, initial encounter; I10 Essential (primary) hypertension; E11.9 Type 2 diabetes mellitus without complications; E78.2 Mixed hyperlipidemia; K21.9 Gastro-esophageal reflux disease without esophagitis; F90.1 Attention-deficit hyperactivity disorder, predominantly hyperactive type; F41.1 Generalized anxiety disorder; M19.071 Primary osteoarthritis, right ankle and foot; Z79.899 Other long term (current) drug therapy; Z79.85 Long-term (current) use of injectable non-insulin antidiabetic drugs; W54.1XXA Struck by dog, initial encounter
CPT/HCPCS: 73630; 99284